=== PATIENT | female | born 1990 | race Caucasian/White ===

== ENCOUNTER 2018-03-13 15:56 | Emergency (ER) | payer BC ==
[2018-03-13] MEDS ORDERED: Ondansetron 4 MG/2 ML SDV IVPUSH ONE (17:05)
[2018-03-13] MEDS ORDERED: Sodium Chloride 0.9% 1,000 ML IV SCH (17:15)
--- NOTE | 2018-03-13 17:46 | EDM.PDOC ---
ED HPI GENERAL MEDICAL PROBLEM - General Chief Complaint: Skin Complaint Stated Complaint: CUT ON NECK/G.BLADDER Time Seen by Provider: 03/13/18 16:29 Source of Information: Reports: Patient, Family () History Limitations: Reports: No Limitations - History of Present Illness INITIAL COMMENTS - FREE TEXT/NARRATIVE: The patient states that she was scratched by her dog on the right side of her neck 3 days ago, 03/10/2018. Today she developed pruritic "bumps" on the right side of her neck and upper right chest. She developed dyspnea and wheezing. She used her albuterol neb, and felt better. She also developed a dull ache in the right upper quadrant of her abdomen, a pain made worse with deep breaths or touching the area. She had the same pain in 2016 and was diagnosed with gallstones. She states she was treated with medications, not surgery. The patient reports nausea for the past week. No recent fever, emesis, constiipation, diarrhea, or urinary symptoms. The patient's last oral intake was at 04:30 this morning. The patient does not have a PCP. Neck Pain Score (Numeric/FACES): 6 Right Abdomen Pain Score (Numeric/FACES): 7 - Related Data Allergies Allergy/AdvReac Type Severity Reaction Status Date / Time doxycycline Allergy Hives Verified 03/13/18 16:22 iodine Allergy Anaphylactic Verified 03/13/18 16:22 Shock latex Allergy Anaphylactic Verified 03/13/18 16:22 Shock shellfish derived Allergy Anaphylactic Verified 03/13/18 16:22 Shock strawberry Allergy Anaphylactic Verified 03/13/18 16:22 Shock Tricyclic Compounds Allergy Hives Verified 03/13/18 16:22 Home Meds: Home Meds Aspirin 81 mg PO DAILY 03/13/18 [History] Insulin Glarg,Human.Rec.Analog [Lantus] 10 unit SQ DAILY 03/13/18 [History] Past Medical History Respiratory History: Reports: Asthma (presumed, not confirmed) 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: Reports: Polycystic Ovaries, Psychiatric History: Reports: Anxiety, Depression Endocrine/Metabolic History: Reports: Diabetes, Type II, Obesity/BMI 30+ Hematologic History: Reports: Other (See Below) (Lupus anticoagulant, but no history of thrombosis or spontaneous ) Immunologic History: Reports: SLE (previously treated with MTx and plaquenil - not currently on any medications) - Infectious Disease History Infectious Disease History: Reports: Other (See Below) (Scabies) - Past Surgical History HEENT Surgical History: Reports: Oral Surgery ([place] teeth extraction), Tonsillectomy Musculoskeletal Surgical History: Reports: Other (See Below) (Right arthroscopic ACL repair) Social & Family History - Family History Family Medical History: Noncontributory - Tobacco Use Smoking Status *Q: Never Smoker Second Hand Smoke Exposure: No - Caffeine Use Caffeine Use: Reports: None - Alcohol Use Alcohol Use History: No - Recreational Drug Use Recreational Drug Use: No - Living Situation & Occupation Living situation: Reports: , with Spouse Occupation: Unemployed ED ROS GENERAL - Review of Systems Review Of Systems: ROS reveals no pertinent complaints other than HPI. ED EXAM, SKIN/RASH Exam: See Below Exam Limited By: No Limitations General Appearance: Alert, WD/WN, No Apparent Distress Eye Exam: Bilateral Eye: Normal Inspection Ears: Normal External Exam, Hearing Grossly Normal Nose: Normal Inspection, No Blood Throat/Mouth: Normal Inspection, Normal Lips, Normal Voice, No Airway Compromise Head: Atraumatic, Normocephalic Neck: Normal Inspection, Full Range of Motion Respiratory/Chest: No Respiratory Distress, Lungs Clear, Normal Breath Sounds, No Accessory Muscle Use Cardiovascular: Normal Peripheral Pulses, Regular Rate, Rhythm, No Gallop, No JVD, No Murmur, No Rub Peripheral Pulses: 4+: Radial (L), Radial (R) GI/Abdominal: Normal Bowel Sounds, Soft, No Organomegaly, No Distention, No Abnormal Bruit, No Mass, Tender (Right upper quadrant only. Nontender elsewhere. Moreira's sign negative.), Other (Obese) (Female) Exam: Deferred Rectal (Female) Exam: Deferred Back Exam: Normal Inspection, Full Range of Motion. No: CVA Tenderness (L), CVA Tenderness (R) Extremities: Normal Inspection, Normal Range of Motion, No Pedal Edema, Normal Capillary Refill Neurological: Alert, Oriented, Normal Cognition, No Motor/Sensory Deficits Psychiatric: Normal Affect Skin: Warm, Dry, Intact, Normal Color, Erythema (to lower right neck and upper right chest - excoriatios noted) Lymphatic: No Adenopathy Course - Vital Signs Last Recorded V/S: Last Vital Signs Temp 36.8 C 03/13/18 16:10 Pulse 99 03/13/18 16:10 Resp 18 03/13/18 16:10 BP 142/106 H 03/13/18 16:10 Pulse Ox 98 03/13/18 16:10 - Orders/Labs/Meds Orders: Active Orders 24 hr Category Date Time Status HCG QUALITATIVE,URINE [URCHEM] Stat Lab 03/13/18 17:20 Ordered UA W/MICROSCOPIC [URIN] Stat Lab 03/13/18 17:20 Ordered Sodium Chloride 0.9% [Normal Saline] 1,000 ml Med 03/13/18 17:15 Active IV ASDIRECTED Medication Orders Sodium Chloride (Normal Saline) 1,000 mls @ 100 mls/hr IV ASDIRECTED AMADEO Last Admin: 03/13/18 17:24 Dose: 100 mls/hr Labs: Laboratory Tests 03/13/18 03/13/18 03/13/18 Range/Units 17:20 17:20 17:20 WBC 7.49 (3.98-10.04) K/mm3 RBC 5.51 H (3.98-5.22) M/mm3 Hgb 14.2 (11.2-15.7) gm/L Hct 43.8 (34.1-44.9) % MCV 79.5 (79.4-94.8) fl MCH 25.8 (25.6-32.2) pg MCHC 32.4 (32.2-35.5) g/dl RDW Std Deviation 40.1 (36.4-46.3) fL Plt Count 301 (182-369) K/mm3 MPV 9.9 (9.4-12.3) fl Neutrophils % (Manual) 50 (40-60) % Band Neutrophils % 1 (0-10) % Lymphocytes % (Manual) 40 (20-40) % Atypical Lymphs % 0 % Monocytes % (Manual) 7 (2-10) % Eosinophils % (Manual) 2 (0.7-5.8) % Basophils % (Manual) 0 L (0.1-1.2) Platelet Estimate Adequate RBC Morph Comment Normal Sodium (136-145) mEq/L Potassium (3.5-5.1) mEq/L Chloride (98-107) mEq/L Carbon Dioxide (21-32) mEq/L Anion Gap (5-15) BUN (7-18) mg/dL Creatinine (0.55-1.02) mg/dL Est Cr Clr Drug Dosing mL/min Estimated GFR (MDRD) (>60) mL/min BUN/Creatinine Ratio (14-18) Glucose (74-106) mg/dL Calcium (8.5-10.1) mg/dL Total Bilirubin (0.2-1.0) mg/dL AST (15-37) U/L ALT (14-59) U/L Alkaline Phosphatase (46-116) U/L Total Protein (6.4-8.2) g/dl Albumin (3.4-5.0) g/dl Globulin gm/dL Albumin/Globulin Ratio (1-2) Lipase (73-393) U/L Urine Color Light yellow (Yellow) Urine Appearance Slt cloudy H (Clear) Urine pH 7.0 (5.0-8.0) Ur Specific [place] 1.025 (1.005-1.030) Urine Protein Trace H (Negative) Urine Glucose (UA) Negative (Negative) Urine Ketones Negative (Negative) Urine Occult Blood Negative (Negative) Urine Nitrite Negative (Negative) Urine Bilirubin Negative (Negative) Urine Urobilinogen 0.2 (0.2-1.0) Ur Leukocyte Esterase Negative (Negative) Urine RBC 0-5 (0-5) /hpf Urine WBC 0-5 (0-5) /hpf Ur Epithelial Cells 5-10 H (0-5) /hpf Urine Bacteria Few (FEW) /hpf Urine Mucus Moderate H (FEW) /hpf Urine HCG, Qual Negative (NEGATIVE) 03/13/18 Range/Units 17:20 WBC (3.98-10.04) K/mm3 RBC (3.98-5.22) M/mm3 Hgb (11.2-15.7) gm/L Hct (34.1-44.9) % MCV (79.4-94.8) fl MCH (25.6-32.2) pg MCHC (32.2-35.5) g/dl RDW Std Deviation (36.4-46.3) fL Plt Count (182-369) K/mm3 MPV (9.4-12.3) fl Neutrophils % (Manual) (40-60) % Band Neutrophils % (0-10) % Lymphocytes % (Manual) (20-40) % Atypical Lymphs % % Monocytes % (Manual) (2-10) % Eosinophils % (Manual) (0.7-5.8) % Basophils % (Manual) (0.1-1.2) Platelet Estimate RBC Morph Comment Sodium 142 (136-145) mEq/L Potassium 3.7 (3.5-5.1) mEq/L Chloride 104 (98-107) mEq/L Carbon Dioxide 26 (21-32) mEq/L Anion Gap 15.7 H (5-15) BUN 10 (7-18) mg/dL Creatinine 0.9 (0.55-1.02) mg/dL Est Cr Clr Drug Dosing 96.39 mL/min Estimated GFR (MDRD) > 60 (>60) mL/min BUN/Creatinine Ratio 11.1 L (14-18) Glucose 122 H (74-106) mg/dL Calcium 9.4 (8.5-10.1) mg/dL Total Bilirubin 0.2 (0.2-1.0) mg/dL AST 27 (15-37) U/L ALT 37 (14-59) U/L Alkaline Phosphatase 108 (46-116) U/L Total Protein 8.7 H (6.4-8.2) g/dl Albumin 3.9 (3.4-5.0) g/dl Globulin 4.8 gm/dL Albumin/Globulin Ratio 0.8 L (1-2) Lipase 146 (73-393) U/L Urine Color (Yellow) Urine Appearance (Clear) Urine pH (5.0-8.0) Ur Specific [place] (1.005-1.030) Urine Protein (Negative) Urine Glucose (UA) (Negative) Urine Ketones (Negative) Urine Occult Blood (Negative) Urine Nitrite (Negative) Urine Bilirubin (Negative) Urine Urobilinogen (0.2-1.0) Ur Leukocyte Esterase (Negative) Urine RBC (0-5) /hpf Urine WBC (0-5) /hpf Ur Epithelial Cells (0-5) /hpf Urine Bacteria (FEW) /hpf Urine Mucus (FEW) /hpf Urine HCG, Qual (NEGATIVE) Meds: Medications Generic Name Dose Route Start Last Admin Trade Name Freq PRN Reason Stop Dose Admin Sodium Chloride 1,000 mls @ 100 mls/hr 03/13/18 17:15 03/13/18 17:24 Normal Saline IV 100 mls/hr ASDIRECTED AMADEO Administration Discontinued Medications Generic Name Dose Route Start Last Admin Trade Name Gregorio PRN Reason Stop Dose Admin Ondansetron HCl 4 mg 03/13/18 17:05 03/13/18 17:25 Zofran IVPUSH 03/13/18 17:06 4 mg ONETIME ONE Administration - Re-Assessments/Exams Free Text/Narrative Re-Assessment/Exam: 03/13/18 18:59 Ultrasound of the right upper quadrant is read by Dr. Ramirez as: 1. No abnormality is appreciated on right upper quadrant abdominal ultrasound. 03/13/18 19:09 Test results discussed with the patient and her . Today's workup is entirely unremarkable, and does not explain the cause of the patient's symptoms. Because her blood work and ultrasound are completely normal, I do not suspect gallbladder disease. The patient stated that the rash on her neck is spreading up her face. While she may feel that, I do not see any extension of the rash compared to when I examined her earlier. While I cannot be certain of the cause of the rash, I am recommending a topical hydrocortisone cream for what appears to be contact dermatitis. I am not recommending systemic steroids, such as prednisone, as I do not see a systemic process. This is not urticaria, and it is not a SLE rash. The patient became hostile. She stated that she is here because the rash hurts, and she wants help. The stated that when she had this previously, it turned into a staph infection. I explained that the hydrocortisone should be effective in reducing the pain and inflammation of the rash, and if she stops scratching it, it should not become infected. I do not see an indication for antibiotics at this time. I recommended that she follow-up with a PCP that I could refer her to, however, she refused that referral. Departure - Departure Time of Disposition: 19:14 Disposition: Home, Self-Care 01 Condition: Good Clinical Impression: Contact dermatitis, Right upper quadrant abdominal pain of unknown etiology - Discharge Information Referrals: PCP,None [Primary Care Provider] - Forms: ED Department Discharge Additional Instructions: You were seen in the emergency room for a rash on your lower right neck and upper right chest, along with upper right abdominal pain. Workup in the ER included blood work, a urinalysis, a urine test, and an ultrasound of your upper right abdomen. Your entire workup was unremarkable, and does not explain the cause of your pain , however, given the entirely negative workup, gallbladder disease is highly unlikely. The cause of your skin rash is unclear, but is consistent with contact dermatitis. We recommend that you apply [id number] hydrocortisone cream twice daily. Do not put the cream on your face, and wash your hands after applying it to the rash. Referral to a primary care physician was offered, but declined. If any other problems, please do not hesitate to return to the ER. - My Orders Last 24 Hours: My Active Orders 03/13/18 17:15 Sodium Chloride 0.9% [Normal Saline] 1,000 ml IV ASDIRECTED 03/13/18 17:20 HCG QUALITATIVE,URINE [URCHEM] Stat UA W/MICROSCOPIC [URIN] Stat - Assessment/Plan Last 24 Hours: My Active Orders 03/13/18 17:15 Sodium Chloride 0.9% [Normal Saline] 1,000 ml IV ASDIRECTED 03/13/18 17:20 HCG QUALITATIVE,URINE [URCHEM] Stat UA W/MICROSCOPIC [URIN] Stat
--- NOTE | 2018-03-13 18:14 | US ---
Limited abdominal ultrasound: Multiple real-time images of the right upper abdomen were obtained. Comparison: No previous abdominal imaging. Liver shows no focal abnormality. Gallbladder contains no gallstones. No gallbladder wall thickening is seen. No biliary duct dilatation is identified. Right kidney shows no hydronephrosis or mass. Visualized portions of the pancreas are within normal limits. Inferior vena cava is patent. Portal vein shows normal hepatopedal flow. Impression: 1. No abnormality is appreciated on right upper quadrant abdominal ultrasound. Diagnostic code #2
[2018-03-13] MEDS ORDERED: diphenhydrAMINE 50 MG Cap PO ONE (20:05)
[2018-03-13] MEDS ORDERED: predniSONE 20 MG Tab PO ONE (20:05)
== END 2018-03-13 20:30 | disposition home or self-care (01) ==
LOC: JD.ED 15:56
DX: L25.9 Unspecified contact dermatitis, unspecified cause (principal); R10.11 Right upper quadrant pain; S10.91XA Abrasion of unspecified part of neck, initial encounter; S20.311A Abrasion of right front wall of thorax, initial encounter; W54.0XXA Bitten by dog, initial encounter; Z91.040 Latex allergy status; Z79.82 Long term (current) use of aspirin; Z79.899 Other long term (current) drug therapy; Z88.8 Allergy status to other drugs, medicaments and biological substances; Z91.018 Allergy to other foods
CPT/HCPCS: 36415; 76705; 80053; 81001; 81025; 83690; 85025; 96361; 96374; 99284; A9270; J2405; J7040; 99283

== ENCOUNTER 2018-04-08 13:30 | Emergency (ER) | payer BC ==
--- NOTE | 2018-04-08 14:16 | EDM.PDOC ---
ED HPI GENERAL MEDICAL PROBLEM - General Chief Complaint: Lower Extremity Injury/Pain Stated Complaint: RIGHT ANKLE INJURY Time Seen by Provider: 04/08/18 14:05 Source of Information: Reports: Patient History Limitations: Reports: No Limitations - History of Present Illness INITIAL COMMENTS - FREE TEXT/NARRATIVE: Patient is a 28-year-old female with history of epilepsy who presents ED complaining of pain to the lateral aspect of the right ankle. Patient states 4 days ago she had a grand mal seizure and hit her ankle on the wall when this occurred. States it did swell up but has since decreased. Their is no bruising noted. She does have some pain with weightbearing with majority of the pain associated to the lateral aspect of the ankle. She states she is limping with walking. She has a history of fracture to the affected ankle. She is traveling to [place] and is concerned she may have fractured it. She has history of lupus , DM 2, HTN, and Epilepsy. She is on no medications. She denies smoking history , alcohol use, and or recreation use. Right Ankle Pain Score (Numeric/FACES): 6 - Related Data Allergies Allergy/AdvReac Type Severity Reaction Status Date / Time doxycycline Allergy Hives Verified 04/08/18 13:46 iodine Allergy Anaphylactic Verified 04/08/18 13:46 Shock latex Allergy Anaphylactic Verified 04/08/18 13:46 Shock shellfish derived Allergy Anaphylactic Verified 04/08/18 13:46 Shock strawberry Allergy Anaphylactic Verified 04/08/18 13:46 Shock Tricyclic Compounds Allergy Hives Verified 04/08/18 13:46 Home Meds: Home Meds Aspirin 81 mg PO DAILY 03/13/18 [History] Insulin Glarg,Human.Rec.Analog [Lantus] 10 unit SQ DAILY 03/13/18 [History] Past Medical History Cardiovascular History: Reports: Angina, Other (See Below) Other Cardiovascular History: has frequent c/o chest pains. Respiratory History: Reports: Asthma (presumed, not confirmed) Other Gastrointestinal History: took Methotrexate for Lupus, took Chemotherapy for Lupus. 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 Musculoskeletal History: Reports: Back Pain, Chronic, Fracture, Other (See Below ) Other Musculoskeletal History: sciatica. States has musculoskeletal disorder. Neurological History: Reports: Migraines, Seizure, Other (See Below) Other Neuro History: epilepsy. Psychiatric History: Reports: Anxiety, Depression Endocrine/Metabolic History: Reports: Diabetes, Type II, Obesity/BMI 30+ Other Endocrine/Metabolic History: Insulin Resistance Hematologic History: Reports: Other (See Below) (Lupus anticoagulant, but no history of thrombosis or spontaneous ) Immunologic History: Reports: SLE (previously treated with MTx and plaquenil - not currently on any medications) Dermatologic History: Reports: Other (See Below) Other Dermatologic History: "Lupus lesions" - Infectious Disease History Infectious Disease History: Reports: Other (See Below) (Scabies) Other Infectious Disease History: scabies. - Past Surgical History HEENT Surgical History: Reports: Oral Surgery ([place] teeth extraction), Tonsillectomy Musculoskeletal Surgical History: Reports: Other (See Below) (Right arthroscopic ACL repair) Social & Family History - Family History Family Medical History: Noncontributory - Caffeine Use Caffeine Use: Reports: None - Living Situation & Occupation Living situation: Reports: , with Spouse Occupation: Unemployed Review of Systems - Review of Systems Review Of Systems: ROS reveals no pertinent complaints other than HPI. ED EXAM, GENERAL - Physical Exam Exam: See Below Exam Limited By: No Limitations General Appearance: Alert, WD/WN, No Apparent Distress Ears: Hearing Grossly Normal Nose: Normal Inspection Throat/Mouth: Normal Voice, No Airway Compromise Neck: Normal Inspection, Supple Respiratory/Chest: No Respiratory Distress, No Accessory Muscle Use Cardiovascular: Normal Peripheral Pulses, Regular Rate, Rhythm Peripheral Pulses: 3+: Posterior Tibial (R) Extremities: Normal Inspection, No Pedal Edema, Normal Capillary Refill, Other ( Pain noted to the right lateral ankle worsened with palpation and flexion/ext of the ankle. No swelling, bruising, and or bony abnormalities noted. No sensory deficits noted. She has no pain to the proximal fibula and or knee. ) Neurological: Alert, Oriented, CN II-XII Intact, Normal Cognition, No Motor/ Sensory Deficits. No: Normal Gait Course - Vital Signs Last Recorded V/S: Last Vital Signs Temp 98.5 F 04/08/18 13:44 Pulse 88 04/08/18 13:44 Resp 18 04/08/18 13:44 BP 136/85 04/08/18 13:44 Pulse Ox 100 04/08/18 13:44 - Re-Assessments/Exams Free Text/Narrative Re-Assessment/Exam: X-ray of the right ankle ordered along with crutches and walking boot for discharge. Suspect the ankle is not fractured. 04/08/18 14:51 X-ray of the right ankle did not reveal any acute bony abnormalities. Final interpretation. Will discharge patient home with instructions as documented. Upon exiting the E.D. patient was limping not using the crutches. was carrying the crutches. Departure - Departure Time of Disposition: 14:52 Disposition: Home, Self-Care 01 Condition: Good Clinical Impression: Right ankle sprain Qualifiers: Encounter type: initial encounter Involved ligament of ankle: unspecified ligament Qualified Code(s): S93.401A - Sprain of unspecified ligament of right ankle, initial encounter - Discharge Information Instructions: Crutch Use, Adult, [id number], Walking Boot, Adult Referrals: PCP,None [Primary Care Provider] - Forms: ED Department Discharge Additional Instructions: No obvious acute bony abnormalities noted on x-ray. Suspect cause is still an ankle sprain/contusion. Treatment will include walking boot, toe-touch only for balance, and crutches to ambulate. Elevate when able to reduce swelling and pain. Place ice to affected area 4 times a day, 27 duration, do not apply ice directly on the skin. Take Tylenol and ibuprofen in alternating fashion for pain. If unable to weight bear in 7 to 10 days please follow up with PCP for re- xray. May advance to weight bearing in 3-5 days. Advance as tolerated. Return to the ED for any new or worsening symptoms.
--- NOTE | 2018-04-10 10:21 | CR ---
Left ankle: Four views of the left ankle were obtained. Comparison: No previous ankle exam. Ankle mortise is symmetric. No fracture, dislocation or other bony abnormality is seen. Impression: 1. No bony abnormality is identified on left ankle exam. Diagnostic code #1
== END 2018-04-08 15:10 | disposition home or self-care (01) ==
LOC: JD.ED 13:30
DX: S93.401A Sprain of unspecified ligament of right ankle, initial encounter (principal); J45.909 Unspecified asthma, uncomplicated; F41.9 Anxiety disorder, unspecified; F32.9 Major depressive disorder, single episode, unspecified; E66.9 Obesity, unspecified; Z91.09 Other allergy status, other than to drugs and biological substances; Z91.040 Latex allergy status; Z91.013 Allergy to seafood; Z79.82 Long term (current) use of aspirin; Z79.4 Long term (current) use of insulin; Z68.41 Body mass index [BMI] 40.0-44.9, adult; W22.01XA Walked into wall, initial encounter
CPT/HCPCS: 73610-26-LT; 73610-LT; 99284

== ENCOUNTER 2018-12-25 19:33 | Emergency (ER) | payer SELFPAY ==
[2018-12-25] MEDS ORDERED: Sodium Chloride 0.9% 10 ML Syringe FLUSH PRN (20:10)
[2018-12-25] MEDS ORDERED: Metoclopramide 10 MG/2 ML SDV IVPUSH ONE (20:13)
[2018-12-25] MEDS ORDERED: diphenhydrAMINE 50 MG/ML SDV IVPUSH ONE (20:13)
[2018-12-25] MEDS ORDERED: Ketorolac 30 MG/ML SDV IVPUSH ONE (20:13)
[2018-12-25] MEDS ORDERED: Sodium Chloride 0.9% 1,000 ML IV SCH (20:15)
--- NOTE | 2018-12-25 20:50 | EDM.PDOC ---
ED HPI GENERAL MEDICAL PROBLEM - General Chief Complaint: Diabetic Complaint Stated Complaint: HIGH BLOOD SUGAR LOSING SIGHT IN EYE KETO Time Seen by Provider: 12/25/18 19:50 Source of Information: Reports: Patient History Limitations: Reports: No Limitations - History of Present Illness INITIAL COMMENTS - FREE TEXT/NARRATIVE: The patient presents with elevated blood sugars. She is type I diabetic and she is on lantus and novolog sliding scale. Over the past few days her blood sugars have been in the 300s and 400s. She may be . Her LNMP was December 02. She also may have a flair up of her lupus. She has more of a rash on her face and her arms. She also has a migraine. She will get migraines when she has elevated blood sugars. She has been drinking more and urinating more. She has some blurry vision in her left eye. She will get that too when her blood sugar is elevated. She has no fever, chills, cough, congestion, runny nose, chest pain, shortness of breath, abdominal pain, nausea or vomiting. She has been her a lot according to her. She was switched from levemer to lantus recently. Onset: Gradual Duration: Day(s): Location: Reports: Head Quality: Reports: Ache Severity: Moderate Improves with: Reports: None Worsens with: Reports: None Associated Symptoms: Reports: Headaches. Denies: Chest Pain, Cough, Fever/ Chills, Nausea/Vomiting, Shortness of Breath Right Abdomen Pain Score (Numeric/FACES): 1 - Related Data Allergies Allergy/AdvReac Type Severity Reaction Status Date / Time doxycycline Allergy Hives Verified 12/25/18 19:49 iodine Allergy Anaphylactic Verified 12/25/18 19:49 Shock latex Allergy Anaphylactic Verified 12/25/18 19:49 Shock shellfish derived Allergy Anaphylactic Verified 12/25/18 19:49 Shock strawberry Allergy Anaphylactic Verified 12/25/18 19:49 Shock Tricyclic Compounds Allergy Hives Verified 12/25/18 19:49 Home Meds: Home Meds Aspirin 81 mg PO DAILY 03/13/18 [History] Insulin Regular, Human [Humulin R] 300 unit IJ ASDIRECTED #5 pen 11/26/18 [Rx] Insulin Glarg,Human.Rec.Analog [Lantus] 16 units SUBCUT DAILY 12/25/18 [History] Sertraline [Zoloft] 100 mg PO DAILY 12/25/18 [History] Past Medical History Cardiovascular History: Reports: Angina, Other (See Below) Other Cardiovascular History: has frequent c/o chest pains. Respiratory History: Reports: Asthma Gastrointestinal History: Reports: Hiatal Hernia, Other (See Below) Other Gastrointestinal History: took Methotrexate for Lupus, took Chemotherapy for Lupus. Genitourinary History: Reports: Pyelonephritis, UTI, Recurrent Other Genitourinary History: states has pyelonephritis chronically. 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 Musculoskeletal History: Reports: Back Pain, Chronic, Fracture, Other (See Below ) Other Musculoskeletal History: sciatica. States has musculoskeletal disorder. He believes that she has lupus erythematosus. She is scheduled to see rheumatology in 2 months time. She was on methotrexate for over a year and on high-dose steroids which did improve her CRP and sedimentation rate. Neurological History: Reports: Migraines, Seizure, Other (See Below) Other Neuro History: epilepsy. Psychiatric History: Reports: Anxiety, Depression Endocrine/Metabolic History: Reports: Diabetes, Type II, Obesity/BMI 30+, Other (See Below) Other Endocrine/Metabolic History: Insulin Resistance Hematologic History: Reports: Other (See Below) Other Hematologic History: heavy blood loss due to CUEVAS and heavy periods, no blood transfusions Immunologic History: Reports: SLE Dermatologic History: Reports: Other (See Below) Other Dermatologic History: "Lupus lesions" - Infectious Disease History Infectious Disease History: Reports: Other (See Below) Other Infectious Disease History: scabies. - Past Surgical History HEENT Surgical History: Reports: Oral Surgery, Tonsillectomy Musculoskeletal Surgical History: Reports: Other (See Below) Social & Family History - Family History Family Medical History: Noncontributory - Tobacco Use Smoking Status *Q: Never Smoker Second Hand Smoke Exposure: No - Caffeine Use Caffeine Use: Reports: None - Recreational Drug Use Recreational Drug Use: Yes Drug Use in Last 12 Months: Yes Recreational Drug Type: Reports: Marijuana/Hashish - Living Situation & Occupation Living situation: Reports: , with Spouse Occupation: Unemployed ED ROS GENERAL - Review of Systems Review Of Systems: See Below Constitutional: Reports: No Symptoms HEENT: Reports: No Symptoms Respiratory: Reports: No Symptoms Cardiovascular: Reports: No Symptoms Endocrine: Reports: No Symptoms GI/Abdominal: Reports: No Symptoms : Reports: No Symptoms Musculoskeletal: Reports: No Symptoms Neurological: Reports: Headache ED EXAM GENERAL NO PERIP PULSE - Physical Exam Exam: See Below Exam Limited By: No Limitations General Appearance: Alert, No Apparent Distress Ears: Normal External Exam Nose: Normal Inspection Head: Atraumatic, Normocephalic Neck: Normal Inspection Respiratory/Chest: No Respiratory Distress, Lungs Clear, Normal Breath Sounds Cardiovascular: Regular Rate, Rhythm, No Edema, No Murmur GI/Abdominal: Soft, Non-Tender, No Organomegaly, No Mass Back Exam: Normal Inspection Extremities: Normal Inspection Neurological: Alert, Oriented, No Motor/Sensory Deficits Course - Vital Signs Last Recorded V/S: Last Vital Signs Temp 98.6 F 12/25/18 19:46 Pulse Resp BP Pulse Ox - Orders/Labs/Meds Orders: Active Orders 24 hr Category Date Time Status Cardiac Monitoring [RC] . DIRECTED Care 12/25/18 20:10 Active Peripheral IV Care [RC] . DIRECTED Care 12/25/18 20:10 Active ABG [BLOOD GAS ARTERIAL] [BG] Stat Lab 12/25/18 21:57 Received Sodium Chloride 0.9% [Normal Saline] 1,000 ml Med 12/25/18 20:15 Active IV .BOLUS Sodium Chloride 0.9% [Saline Flush] Med 12/25/18 20:10 Active 10 ml FLUSH ASDIRECTED PRN Peripheral IV Insertion Adult [OM.PC] Stat Oth 12/25/18 20:10 Ordered Medication Orders Sodium Chloride (Normal Saline) 1,000 mls @ 1,000 mls/hr IV .BOLUS AMADEO Last Admin: 12/25/18 20:45 Dose: 1,000 mls/hr Sodium Chloride (Saline Flush) 10 ml FLUSH ASDIRECTED PRN PRN Reason: Keep Vein Open Last Admin: 12/25/18 20:46 Dose: 10 ml Labs: Laboratory Tests 12/25/18 12/25/18 12/25/18 Range/Units 20:45 20:45 20:45 WBC 9.96 (3.98-10.04) K/mm3 RBC 5.25 H (3.98-5.22) M/mm3 Hgb 13.7 (11.2-15.7) gm/L Hct 41.7 (34.1-44.9) % MCV 79.4 (79.4-94.8) fl MCH 26.1 (25.6-32.2) pg MCHC 32.9 (32.2-35.5) g/dl RDW Std Deviation 40.9 (36.4-46.3) fL Plt Count 295 (182-369) K/mm3 MPV 10.6 (9.4-12.3) fl Neut % (Auto) 46.1 (34.0-71.1) % Lymph % (Auto) 45.1 (19.3-51.7) % [place] % (Auto) 6.1 (4.7-12.5) % Eos % (Auto) 1.8 (0.7-5.8) Baso % (Auto) 0.3 (0.1-1.2) % Neut # (Auto) 4.59 (1.56-6.13) K/mm3 Lymph # (Auto) 4.49 H (1.18-3.74) K/mm3 [place] # (Auto) 0.61 H (0.24-0.36) K/mm3 Eos # (Auto) 0.18 (0.04-0.36) K/mm3 Baso # (Auto) 0.03 (0.01-0.08) K/mm3 ESR 29 H (0-20) mm/hr Sodium (136-145) mEq/L Potassium (3.5-5.1) mEq/L Chloride (98-107) mEq/L Carbon Dioxide (21-32) mEq/L Anion Gap (5-15) BUN (7-18) mg/dL Creatinine (0.55-1.02) mg/dL Est Cr Clr Drug Dosing mL/min Estimated GFR (MDRD) (>60) mL/min BUN/Creatinine Ratio (14-18) Glucose (74-106) mg/dL Serum Osmolality (280-300) mosm/kg Calcium (8.5-10.1) mg/dL Total Bilirubin (0.2-1.0) mg/dL AST (15-37) U/L ALT (14-59) U/L Alkaline Phosphatase (46-116) U/L C-Reactive Protein (<1.0) mg/dL Total Protein (6.4-8.2) g/dl Albumin (3.4-5.0) g/dl Globulin gm/dL Albumin/Globulin Ratio (1-2) Lipase (73-393) U/L HCG, Qual (NEGATIVE) Urine Color Yellow (Yellow) Urine Appearance Clear (Clear) Urine pH 6.0 (5.0-8.0) Ur Specific [place] 1.020 (1.005-1.030) Urine Protein Negative (Negative) Urine Glucose (UA) 2+ H (Negative) Urine Ketones Trace H (Negative) Urine Occult Blood Negative (Negative) Urine Nitrite Negative (Negative) Urine Bilirubin Negative (Negative) Urine Urobilinogen 0.2 (0.2-1.0) Ur Leukocyte Esterase Negative (Negative) Urine RBC 0-5 (0-5) /hpf Urine WBC 0-5 (0-5) /hpf Ur Epithelial Cells 5-10 H (0-5) /hpf Urine Bacteria Few (FEW) /hpf Urine Mucus Few (FEW) /hpf Ketones (0.0-0.3) mM 12/25/18 12/25/18 12/25/18 Range/Units 20:45 20:45 20:45 WBC (3.98-10.04) K/mm3 RBC (3.98-5.22) M/mm3 Hgb (11.2-15.7) gm/L Hct (34.1-44.9) % MCV (79.4-94.8) fl MCH (25.6-32.2) pg MCHC (32.2-35.5) g/dl RDW Std Deviation (36.4-46.3) fL Plt Count (182-369) K/mm3 MPV (9.4-12.3) fl Neut % (Auto) (34.0-71.1) % Lymph % (Auto) (19.3-51.7) % [place] % (Auto) (4.7-12.5) % Eos % (Auto) (0.7-5.8) Baso % (Auto) (0.1-1.2) % Neut # (Auto) (1.56-6.13) K/mm3 Lymph # (Auto) (1.18-3.74) K/mm3 [place] # (Auto) (0.24-0.36) K/mm3 Eos # (Auto) (0.04-0.36) K/mm3 Baso # (Auto) (0.01-0.08) K/mm3 ESR (0-20) mm/hr Sodium 136 (136-145) mEq/L Potassium 3.9 (3.5-5.1) mEq/L Chloride 100 (98-107) mEq/L Carbon Dioxide 26 (21-32) mEq/L Anion Gap 13.9 (5-15) BUN 12 (7-18) mg/dL Creatinine 0.8 (0.55-1.02) mg/dL Est Cr Clr Drug Dosing 107.50 mL/min Estimated GFR (MDRD) > 60 (>60) mL/min BUN/Creatinine Ratio 15.0 (14-18) Glucose 293 H (74-106) mg/dL Serum Osmolality 303 H (280-300) mosm/kg Calcium 9.4 (8.5-10.1) mg/dL Total Bilirubin 0.1 L (0.2-1.0) mg/dL AST 24 (15-37) U/L ALT 32 (14-59) U/L Alkaline Phosphatase 110 (46-116) U/L C-Reactive Protein 3.2 H* (<1.0) mg/dL Total Protein 8.5 H (6.4-8.2) g/dl Albumin 3.7 (3.4-5.0) g/dl Globulin 4.8 gm/dL Albumin/Globulin Ratio 0.8 L (1-2) Lipase 197 (73-393) U/L HCG, Qual Negative (NEGATIVE) Urine Color (Yellow) Urine Appearance (Clear) Urine pH (5.0-8.0) Ur Specific [place] (1.005-1.030) Urine Protein (Negative) Urine Glucose (UA) (Negative) Urine Ketones (Negative) Urine Occult Blood (Negative) Urine Nitrite (Negative) Urine Bilirubin (Negative) Urine Urobilinogen (0.2-1.0) Ur Leukocyte Esterase (Negative) Urine RBC (0-5) /hpf Urine WBC (0-5) /hpf Ur Epithelial Cells (0-5) /hpf Urine Bacteria (FEW) /hpf Urine Mucus (FEW) /hpf Ketones 0.20 (0.0-0.3) mM Meds: Medications Generic Name Dose Route Start Last Admin Trade Name Freq PRN Reason Stop Dose Admin Sodium Chloride 1,000 mls @ 1,000 mls/hr 12/25/18 20:15 12/25/18 20:45 Normal Saline IV 1,000 mls/hr .BOLUS AMADEO Administration Sodium Chloride 10 ml 12/25/18 20:10 12/25/18 20:46 Saline Flush FLUSH 10 ml ASDIRECTED PRN Administration Keep Vein Open Discontinued Medications Generic Name Dose Route Start Last Admin Trade Name Freq PRN Reason Stop Dose Admin Diphenhydramine HCl 50 mg 12/25/18 20:13 12/25/18 20:45 Benadryl IVPUSH 12/25/18 20:14 50 mg ONETIME ONE Administration Ketorolac Tromethamine 30 mg 12/25/18 20:13 12/25/18 20:45 Toradol IVPUSH 12/25/18 20:14 30 mg ONETIME ONE Administration Metoclopramide HCl 10 mg 12/25/18 20:13 12/25/18 20:46 Reglan IVPUSH 12/25/18 20:14 10 mg ONETIME ONE Administration Prednisone 40 mg 12/25/18 22:45 Prednisone PO 12/25/18 22:46 ONETIME ONE - Re-Assessments/Exams Free Text/Narrative Re-Assessment/Exam: 12/25/18 20:52 I ordered an IV NS 1L bolus, reglan 10mg IV, benadryl 50mg IV, toradol 30mg IV, and labs. 12/25/18 22:47 Her CBC looks good. Her glucose was 293. Her serum osmolality was elevated at 303. Her CRP was elevated at 3.2. Her HCG is negative. Her lipase was normal. Her UA shows no UTI. Her ketones were 0.2. Her pH was 7.39. She does not have DKA but I should increase her lantus to 30 units. She is having a flair up of her lupus. I will put her on some steroids. She does have steroids at home. Departure - Departure Time of Disposition: 22:50 Disposition: Home, Self-Care 01 Condition: Good Clinical Impression: Hyperglycemia, Lupus Migraine Qualifiers: Migraine type: unspecified Status migrainosus presence: without status migrainosus Intractability: not intractable Qualified Code(s): G43.909 - Migraine, unspecified, not intractable, without status migrainosus - Discharge Information *PRESCRIPTION DRUG MONITORING PROGRAM REVIEWED*: No Referrals: Britt Cortes NP [Primary Care Provider] - 1 Week Forms: ED Department Discharge Additional Instructions: Go up with your lantus to 30 units per day. Take prednisone daily for 5 days. Keep checking your blood sugar. Please return if you are worse. - My Orders Last 24 Hours: My Active Orders 12/25/18 20:10 Cardiac Monitoring [RC] . DIRECTED Peripheral IV Care [RC] . DIRECTED Sodium Chloride 0.9% [Saline Flush] 10 ml FLUSH ASDIRECTED PRN Peripheral IV Insertion Adult [OM.PC] Stat 12/25/18 20:15 Sodium Chloride 0.9% [Normal Saline] 1,000 ml IV .BOLUS 12/25/18 21:57 ABG [BLOOD GAS ARTERIAL] [BG] Stat - Assessment/Plan Last 24 Hours: My Active Orders 12/25/18 20:10 Cardiac Monitoring [RC] . DIRECTED Peripheral IV Care [RC] . DIRECTED Sodium Chloride 0.9% [Saline Flush] 10 ml FLUSH ASDIRECTED PRN Peripheral IV Insertion Adult [OM.PC] Stat 12/25/18 20:15 Sodium Chloride 0.9% [Normal Saline] 1,000 ml IV .BOLUS 12/25/18 21:57 ABG [BLOOD GAS ARTERIAL] [BG] Stat
[2018-12-25] MEDS ORDERED: predniSONE 20 MG Tab PO ONE (22:45)
== END 2018-12-25 23:05 | disposition home or self-care (01) ==
LOC: JD.ED 19:33
DX: E11.65 Type 2 diabetes mellitus with hyperglycemia (principal); M32.9 Systemic lupus erythematosus, unspecified; G43.909 Migraine, unspecified, not intractable, without status migrainosus; F41.9 Anxiety disorder, unspecified; F32.9 Major depressive disorder, single episode, unspecified; Z88.1 Allergy status to other antibiotic agents; Z88.8 Allergy status to other drugs, medicaments and biological substances; Z91.040 Latex allergy status; Z91.013 Allergy to seafood; Z91.018 Allergy to other foods; Z88.6 Allergy status to analgesic agent; Z79.4 Long term (current) use of insulin
CPT/HCPCS: 36415; 80053; 81001; 82009; 82803; 83690; 83930; 84703; 85025; 85652; 86140; 96361; 96374; 96375; 99285; J1200; J1885; J2765; J7040; 99284

== ENCOUNTER 2019-02-18 21:19 | Emergency (ER) | payer MEDICAID ==
[2019-02-18] MEDS ORDERED: Dextrose 5%-0.9% NaCl 1,000 ML IV SCH (21:45)
[2019-02-18] MEDS ORDERED: Ondansetron 4 MG/2 ML SDV IVPUSH ONE (21:55)
[2019-02-18] MEDS: 50% Dextrose in Water 50 ML Syringe IVPUSH PRN ×2 (22:47→23:23)
--- NOTE | 2019-02-18 23:15 | EDM.PDOC ---
<Cathy Butterfield - Last Filed: 02/18/19 23:28> ED HPI GENERAL MEDICAL PROBLEM - General Chief Complaint: Diabetic Complaint Stated Complaint: OVERDOSE OF INSULIN Time Seen by Provider: 02/18/19 21:26 Source of Information: Reports: Patient History Limitations: Reports: No Limitations - History of Present Illness INITIAL COMMENTS - FREE TEXT/NARRATIVE: 28 yo F comes in with her because she accidently overdosed on her insulin around 20 minutes prior to arrival in ED. She accidently took 30 units of her Novolog instead of 4 units with her meal (she confused it with her 30 units of Lantus). She states "I have never done this before, I don't know what happened". BG 135 was after eating. She called poison control and they told her to come to the ED. She currently c/o nausea, dizziness, fatigue, thirst. No other complaints at this time. PCP is ASHLEY Greene. - Related Data Allergies Allergy/AdvReac Type Severity Reaction Status Date / Time doxycycline Allergy Hives Verified 12/25/18 19:49 iodine Allergy Anaphylactic Verified 12/25/18 19:49 Shock latex Allergy Anaphylactic Verified 12/25/18 19:49 Shock shellfish derived Allergy Anaphylactic Verified 12/25/18 19:49 Shock strawberry Allergy Anaphylactic Verified 12/25/18 19:49 Shock Tricyclic Compounds Allergy Hives Verified 12/25/18 19:49 Home Meds: Home Meds Aspirin 81 mg PO DAILY 03/13/18 [History] Insulin Regular, Human [Humulin R] 300 unit IJ ASDIRECTED #5 pen 11/26/18 [Rx] Insulin Glarg,Human.Rec.Analog [Lantus] 16 units SUBCUT DAILY 12/25/18 [History] Sertraline [Zoloft] 100 mg PO DAILY 12/25/18 [History] Ondansetron [Zofran ODT] 1 tab PO Q8H PRN #10 tab.dis 02/19/19 [Rx] Past Medical History Cardiovascular History: Reports: Angina, Other (See Below) Other Cardiovascular History: has frequent c/o chest pains. Respiratory History: Reports: Asthma Gastrointestinal History: Reports: Hiatal Hernia, Other (See Below) Other Gastrointestinal History: took Methotrexate for Lupus, took Chemotherapy for Lupus. Genitourinary History: Reports: Pyelonephritis, UTI, Recurrent Other Genitourinary History: states has pyelonephritis chronically. 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 Musculoskeletal History: Reports: Back Pain, Chronic, Fracture, Other (See Below ) Other Musculoskeletal History: sciatica. States has musculoskeletal disorder. He believes that she has lupus erythematosus. She is scheduled to see rheumatology in 2 months time. She was on methotrexate for over a year and on high-dose steroids which did improve her CRP and sedimentation rate. Neurological History: Reports: Migraines, Seizure, Other (See Below) Other Neuro History: epilepsy. Psychiatric History: Reports: Anxiety, Depression Endocrine/Metabolic History: Reports: Diabetes, Type II, Obesity/BMI 30+, Other (See Below) Other Endocrine/Metabolic History: Insulin Resistance Hematologic History: Reports: Other (See Below) Other Hematologic History: Heavy blood loss due to CUEVAS and heavy periods, no blood transfusions. "CUEVAS" disease--sticky blood disease. Immunologic History: Reports: SLE Dermatologic History: Reports: Other (See Below) Other Dermatologic History: "Lupus lesions" - Infectious Disease History Infectious Disease History: Reports: Other (See Below) Other Infectious Disease History: scabies. - Past Surgical History HEENT Surgical History: Reports: Oral Surgery, Tonsillectomy GI Surgical History: Reports: Hernia Repair/Other Musculoskeletal Surgical History: Reports: Other (See Below) Social & Family History - Family History Family Medical History: Noncontributory - Tobacco Use Smoking Status *Q: Former Smoker Used Tobacco, but Quit: Yes Month/Year Tobacco Last Used: 12/2012 Second Hand Smoke Exposure: No - Caffeine Use Caffeine Use: Reports: None - Recreational Drug Use Recreational Drug Use: Yes Recreational Drug Type: Reports: Marijuana/Hashish Other Recreational Drug Type: last use was Saturday - Living Situation & Occupation Living situation: Reports: , with Spouse Occupation: Unemployed ED ROS GENERAL - Review of Systems Review Of Systems: ROS reveals no pertinent complaints other than HPI. ED EXAM GENERAL NO PERIP PULSE - Physical Exam Exam: See Below Exam Limited By: No Limitations General Appearance: Alert, WD/WN, No Apparent Distress Eye Exam: Bilateral Eye: EOMI, Normal Inspection, PERRL Ears: Normal External Exam, Hearing Grossly Normal Throat/Mouth: Normal Inspection, Normal Lips, Normal Teeth, Normal Gums, Normal Oropharynx, Normal Voice, No Airway Compromise Neck: Normal Inspection, Supple, Non-Tender, Full Range of Motion Respiratory/Chest: No Respiratory Distress, Lungs Clear, Normal Breath Sounds, No Accessory Muscle Use, Chest Non-Tender Cardiovascular: Normal Peripheral Pulses, Regular Rate, Rhythm, No Edema, No Gallop, No JVD, No Murmur, No Rub GI/Abdominal: Normal Bowel Sounds, Soft, Non-Tender, No Organomegaly, No Distention, No Abnormal Bruit, No Mass Psychiatric: Normal Affect, Normal Mood Course - Vital Signs Last Recorded V/S: Last Vital Signs Temp 36.2 C 02/18/19 21:26 Pulse 106 H 02/18/19 21:26 Resp 20 02/18/19 21:26 BP 144/94 H 02/18/19 21: Pulse Ox 98 02/18/19 21:26 - Orders/Labs/Meds Orders: Active Orders 24 hr Category Date Time Status Blood Glucose Check, Bedside [RC] ONETIME Care 02/18/19 21:32 Active Dextrose 5%-0.9% NaCl [Dextrose 5%-Normal Saline] 1,000 Med 02/18/19 21:45 Active ml IV ASDIRECTED Dextrose 50% in Water Med 02/18/19 21:32 Active 50 ml IVPUSH ASDIRECTED PRN Medication Orders Dextrose/Water (Dextrose 50% In Water) 50 ml IVPUSH ASDIRECTED PRN PRN Reason: Hypoglycemia Last Admin: 02/18/19 23:23 Dose: 25 ml Admin: 02/18/19 22:47 Dose: 25 ml Dextrose/Sodium Chloride (Dextrose 5%-Normal Saline) 1,000 mls @ 999 mls/hr IV ASDIRECTED AMADEO Last Admin: 02/18/19 21:45 Dose: 999 mls/hr Labs: Laboratory Tests 02/18/19 02/18/19 02/18/19 Range/Units 21:33 22:40 23:16 POC Glucose 154 H 80 86 (70-105) mg/dL 02/18/19 Range/Units 23:49 POC Glucose 91 (70-105) mg/dL Meds: Medications Generic Name Dose Route Start Last Admin Trade Name Freq PRN Reason Stop Dose Admin Dextrose/Water 50 ml 02/18/19 21:32 03/20/19 23:23 Dextrose 50% In Water IVPUSH 25 ml ASDIRECTED PRN Administration Hypoglycemia Dextrose/Sodium Chloride 1,000 mls @ 999 mls/hr 02/18/19 21:45 02/18/19 21:45 Dextrose 5%-Normal Saline IV 999 mls/hr ASDIRECTED AMADEO Administration Discontinued Medications Generic Name Dose Route Start Last Admin Trade Name Gregorio PRN Reason Stop Dose Admin Ondansetron HCl 4 mg 02/18/19 21:55 02/18/19 22:19 Zofran IVPUSH 02/18/19 21:56 4 mg ONETIME ONE Administration - Re-Assessments/Exams Free Text/Narrative Re-Assessment/Exam: 02/18/19 21:32 I ordered amp of D5 and IV D5NS. Zofran for nausea. BG checks every 30 min. 02/18/19 21:32 Bedside Glucose check is 154; will hold D5 amp. 02/18/19 22:20 Poison control called to check on patient. Recommended holding the IV D5NS and doing oral replacement. Will go ahead and hold and give orange juice and milk with BG checks every 30 min. Novolog should peak in about 1-3 hours, so we will continue to monitor her until her blood sugar stabilizes. 02/18/19 22:40 BG check is 80. Give 1/2 D5 amp. 02/18/19 23:16 BG check is now 86. Give other 1/2 D5 amp. It is now change of shift. Will be transferring care to Dr. Titus at this time. Departure - Departure Disposition: Home, Self-Care 01 Clinical Impression: Insulin overdose - Discharge Information Referrals: Britt Cortes NP [Primary Care Provider] - Forms: ED Department Discharge Additional Instructions: You were seen in the emergency room after taking excessive insulin. Your blood sugar was monitored and you were given supplemental sugar. Your most recent blood sugar was 91. We recommend that you continue to monitor your blood sugar for the next 2 or 3 hours, and take glucose tablets or other glucose sources if it drops low. If you are unable to raise your blood sugar, call 911 to return to the ER. A prescription for the anti-nausea medicine Zofran has been sent to the [facility], located in the [facility] grocery store. Dissolve one tablet of Zofran on your tongue up to every 8 hours, as needed for nausea/vomiting. We recommend that you notify your PCP, Britt Cortes, of tonight's event. If any other problems, please do not hesitate to return to the ER. <Macho Titus - Last Filed: 02/19/19 00:04> Course - Re-Assessments/Exams Free Text/Narrative Re-Assessment/Exam: 02/18/19 23:59 Notified by Yary TOBIAS that the patient's blood glucose is 91, that she feels great, and would like to go home. The patient is also requesting a prescription for Zofran. Departure - Departure Time of Disposition: 23:59 Condition: Good - Discharge Information *PRESCRIPTION DRUG MONITORING PROGRAM REVIEWED*: Not Applicable *COPY OF PRESCRIPTION DRUG MONITORING REPORT IN PATIENT JANY: Not Applicable
== END 2019-02-19 00:13 | disposition home or self-care (01) ==
LOC: JD.ED 21:19
DX: T38.3X1A Poisoning by insulin and oral hypoglycemic [antidiabetic] drugs, accidental (unintentional), initial encounter (principal); R11.10 Vomiting, unspecified; R42 Dizziness and giddiness; R53.83 Other fatigue; J45.909 Unspecified asthma, uncomplicated; F41.9 Anxiety disorder, unspecified; E11.9 Type 2 diabetes mellitus without complications; F32.9 Major depressive disorder, single episode, unspecified; Z87.891 Personal history of nicotine dependence; Z88.8 Allergy status to other drugs, medicaments and biological substances; Z91.013 Allergy to seafood; Z79.82 Long term (current) use of aspirin; Z79.4 Long term (current) use of insulin
CPT/HCPCS: 82962; 96374; 96375; 96376; 99283; J2405; J7042; J7060; 99284

== ENCOUNTER 2019-07-28 11:02 | Emergency (ER) | payer MEDICAID ==
[2019-07-28] MEDS ORDERED: Ondansetron 4 MG Tab.DIS PO ONE (11:31)
[2019-07-28] MEDS ORDERED: predniSONE 20 MG Tab PO ONE (11:34)
[2019-07-28] MEDS ORDERED: Acetaminophen/HYDROcodone 325-5 MG Tab PO ONE (11:35)
--- NOTE | 2019-07-28 11:36 | EDM.PDOC ---
ED HPI GENERAL MEDICAL PROBLEM - General Chief Complaint: Back Pain or Injury Stated Complaint: BACK PAIN Time Seen by Provider: 07/28/19 11:10 Source of Information: Reports: Patient, RN Notes Reviewed History Limitations: Reports: No Limitations - History of Present Illness INITIAL COMMENTS - FREE TEXT/NARRATIVE: Patient is a 29-year-old female who presents to the ED for evaluation of back pain. The patient notes that she's had some back pain for about 3 days now, however yesterday she did a lot of heavy moving and lifting in her home which aggravated it even further. Patient states that she has a sharp shooting pain in her right lower back that shoots down her right leg when she moves. Patient has been using Tylenol, ibuprofen, CBD, and fainting however she does not feel that his been working at all. She states she does feel muscle spasms in her lower back as well. She notes a prior history of a back injury, and she had 2 shots in her back and has done PT and chiropractor treatment in the past. Patient states she's been using pain relief cream and lidocaine patches but nothing seems to really be providing her benefit. Of note the patient thinks that she might be as they have been doing IVF therapy Right Lower Back Pain Score (Numeric/FACES): 6 - Related Data Allergies Allergy/AdvReac Type Severity Reaction Status Date / Time doxycycline Allergy Hives Verified 07/28/19 11:29 iodine Allergy Anaphylactic Verified 07/28/19 11:29 Shock latex Allergy Anaphylactic Verified 07/28/19 11:29 Shock shellfish derived Allergy Anaphylactic Verified 07/28/19 11:29 Shock strawberry Allergy Anaphylactic Verified 07/28/19 11:29 Shock Tricyclic Compounds Allergy Hives Verified 07/28/19 11:29 Home Meds: Home Meds Aspirin 81 mg PO DAILY 03/13/18 [History] Insulin Regular, Human [Humulin R] 300 unit IJ ASDIRECTED #5 pen 11/26/18 [Rx] Insulin Glarg,Human.Rec.Analog [Lantus] 16 units SUBCUT DAILY 12/25/18 [History] Sertraline [Zoloft] 100 mg PO DAILY 12/25/18 [History] Ondansetron [Zofran ODT] 1 tab PO Q8H PRN #10 tab.dis 02/19/19 [Rx] Past Medical History Cardiovascular History: Reports: Angina, Other (See Below) Other Cardiovascular History: has frequent c/o chest pains. Respiratory History: Reports: Asthma Gastrointestinal History: Reports: Hiatal Hernia, Other (See Below) Other Gastrointestinal History: took Methotrexate for Lupus, took Chemotherapy for Lupus. Genitourinary History: Reports: Pyelonephritis, UTI, Recurrent Other Genitourinary History: states has pyelonephritis chronically. CERTIFIED NURSE PRACTITIONER History: Reports: Polycystic Ovaries, Other CERTIFIED NURSE PRACTITIONER History: "CUEVAS" disease--sticky blood disease. Musculoskeletal History: Reports: Back Pain, Chronic, Fracture, Other (See Below ) Other Musculoskeletal History: sciatica. States has musculoskeletal disorder. He believes that she has lupus erythematosus. She is scheduled to see rheumatology in 2 months time. She was on methotrexate for over a year and on high-dose steroids which did improve her CRP and sedimentation rate. Neurological History: Reports: Migraines, Seizure, Other (See Below) Other Neuro History: epilepsy. Psychiatric History: Reports: Anxiety, Depression Endocrine/Metabolic History: Reports: Diabetes, Type II, Obesity/BMI 30+, Other (See Below) Other Endocrine/Metabolic History: Insulin Resistance Hematologic History: Reports: Other (See Below) Other Hematologic History: Heavy blood loss due to CUEVAS and heavy periods, no blood transfusions. "CUEVAS" disease--sticky blood disease. Immunologic History: Reports: SLE Dermatologic History: Reports: Other (See Below) Other Dermatologic History: "Lupus lesions" - Infectious Disease History Infectious Disease History: Reports: Other (See Below) Other Infectious Disease History: scabies. - Past Surgical History HEENT Surgical History: Reports: Oral Surgery, Tonsillectomy GI Surgical History: Reports: Hernia Repair/Other Musculoskeletal Surgical History: Reports: Other (See Below) Social & Family History - Family History Family Medical History: Noncontributory - Tobacco Use Smoking Status *Q: Never Smoker - Caffeine Use Caffeine Use: Reports: None - Recreational Drug Use Recreational Drug Use: No - Living Situation & Occupation Living situation: Reports: , with Spouse Occupation: Unemployed ED ROS GENERAL - Review of Systems Review Of Systems: See Below Constitutional: Reports: No Symptoms HEENT: Reports: No Symptoms Respiratory: Reports: No Symptoms Cardiovascular: Reports: No Symptoms Endocrine: Reports: No Symptoms GI/Abdominal: Reports: Nausea. Denies: Abdominal Pain, Constipation, Diarrhea, Vomiting : Denies: Dysuria, Flank Pain, Frequency, Urgency Musculoskeletal: Reports: No Symptoms Skin: Reports: No Symptoms Neurological: Reports: No Symptoms Psychiatric: Reports: No Symptoms Hematologic/Lymphatic: Reports: No Symptoms Immunologic: Reports: No Symptoms ED EXAM,LOWER BACK PAIN/INJURY - Physical Exam Exam: See Below Exam Limited By: No Limitations General Appearance: Alert, WD/WN, No Apparent Distress Eye Exam: Bilateral Eye: EOMI, Normal Inspection, PERRL Throat/Mouth: Normal Inspection, Normal Lips, Normal Teeth, Normal Gums, Normal Oropharynx, Normal Voice, No Airway Compromise Head: Atraumatic, Normocephalic Neck: Normal Inspection Respiratory/Chest: No Respiratory Distress, Lungs Clear, Normal Breath Sounds, No Accessory Muscle Use, Chest Non-Tender Cardiovascular: Normal Peripheral Pulses, Regular Rate, Rhythm, No Murmur GI/Abdominal: Normal Bowel Sounds, Soft, Non-Tender, No Distention, No Mass Neurological: Alert, Normal Mood/Affect, Normal Dorsiflexion, Normal Plantar Flexion, No Motor/Sensory Deficits, Oriented x 3, Straight Leg Raise (R), Difficulty Walking (pt has to hunch over to walk). No: Saddle Anesthesia Psychiatric: Normal Affect, Normal Mood Skin Exam: Warm, Dry, Intact, Normal Color, No Rash Course - Vital Signs Last Recorded V/S: Last Vital Signs Temp Pulse 104 H 07/28/19 11:09 Resp 20 07/28/19 11:09 BP 132/90 07/28/19 11:09 Pulse Ox 96 07/28/19 11:09 - Orders/Labs/Meds Meds: Medications Discontinued Medications Generic Name Dose Route Start Last Admin Trade Name Gregorio PRN Reason Stop Dose Admin Hydrocodone Bitart/Acetaminophen 2 tab 07/28/19 11:35 07/28/19 11:44 [place] 325-5 Mg PO 07/28/19 11:36 2 tab ONETIME ONE Administration Ondansetron HCl 4 mg 07/28/19 11:31 07/28/19 11:44 Zofran Odt PO 07/28/19 11:32 4 mg ONETIME ONE Administration Prednisone 20 mg 07/28/19 11:34 07/28/19 11:44 Prednisone PO 07/28/19 11:35 20 mg ONETIME ONE Administration - Re-Assessments/Exams Free Text/Narrative Re-Assessment/Exam: 07/28/19 11:39 Patient presents to the ED for evaluation of lower back pain that radiates to her right leg. Her symptoms are consistent with sciatica vs SI joint issue. She believes that she is at this time, did order prednisone, Zofran, and norco 5/325 for management. Will likely send patient home with the prednisone. Departure - Departure Time of Disposition: 11:53 Disposition: Home, Self-Care 01 Condition: Fair Clinical Impression: Low back pain Qualifiers: Chronicity: acute Back pain laterality: right Sciatica presence: with sciatica Sciatica laterality: sciatica of right side Qualified Code(s): M54.41 - Lumbago with sciatica, right side - Discharge Information *PRESCRIPTION DRUG MONITORING PROGRAM REVIEWED*: Yes *COPY OF PRESCRIPTION DRUG MONITORING REPORT IN PATIENT JANY: No Instructions: Sciatica, [id number], Pain Medicine Instructions, [id number] , Back Exercises, [id number] Referrals: Britt Cortes SHELTER SUPERVISOR [Primary Care Provider] - Forms: ED Department Discharge Additional Instructions: You have been evaluated in the ED for your lower back pain. Please use ice/heat as tolerated to the affected area. You may take Tylenol 500 mg q6 hrs for pain relief. Please do so until you have a tolerable level of pain with activity. Do not exceed 4000mg Tylenol in a 24 hour time period. You were given a prescription for hydrocodone/acetaminophen 5/325, please use 1- 2 tabs every 6 hours as needed for further pain relief, please note how much Tylenol your ingesting and do not take over the amount described above. You were given a course of steroids for your sciatica, please take as directed until gone. Aleve and ibuprofen use is not advised in . Please return to ED if your symptoms should change or worsen.
[2019-07-28] MEDS ORDERED: Morphine 10 MG/ML Syringe IM ONE (12:22)
== END 2019-07-28 12:45 | disposition home or self-care (01) ==
LOC: JD.ED 11:02
DX: M54.41 Lumbago with sciatica, right side (principal); F41.9 Anxiety disorder, unspecified; F32.9 Major depressive disorder, single episode, unspecified; E11.9 Type 2 diabetes mellitus without complications; Z88.1 Allergy status to other antibiotic agents; Z91.048 Other nonmedicinal substance allergy status; Z91.040 Latex allergy status; Z91.013 Allergy to seafood; Z91.018 Allergy to other foods; Z88.8 Allergy status to other drugs, medicaments and biological substances; Z79.82 Long term (current) use of aspirin; Z79.4 Long term (current) use of insulin; Z79.899 Other long term (current) drug therapy
CPT/HCPCS: 96372; 99283; A9270; J2270

== ENCOUNTER 2019-11-12 16:00 | Emergency (ER) | payer MEDICAID ==
--- NOTE | 2019-11-12 16:47 | EDM.PDOC ---
ED HPI GENERAL MEDICAL PROBLEM - General Chief Complaint: ENT Problem Stated Complaint: FLU SX AND SORE THROAT Time Seen by Provider: 11/12/19 16:42 - History of Present Illness INITIAL COMMENTS - FREE TEXT/NARRATIVE: 29-year-old female presents emergency room with severe sore throat generalized achiness and possible fevers. Patient is treated for lupus. She has a three-day history of worsening sore throat generally not feeling very well possible fevers she doesn't always have fevers when she should. She has minimal cough nonproductive. She has some abdominal discomfort in her right upper quadrant. No nausea vomiting or diarrhea. Treatments DRYWALL APPLICATION SUPERVISOR: Reports: Other (see below) Other Treatments DRYWALL APPLICATION SUPERVISOR: dayquil Throat Pain Score (Numeric/FACES): 8 - Related Data Allergies Allergy/AdvReac Type Severity Reaction Status Date / Time doxycycline Allergy Hives Verified 11/12/19 16:28 iodine Allergy Anaphylactic Verified 11/12/19 16:28 Shock latex Allergy Anaphylactic Verified 11/12/19 16:28 Shock shellfish derived Allergy Anaphylactic Verified 11/12/19 16:28 Shock strawberry Allergy Anaphylactic Verified 11/12/19 16:28 Shock Tricyclic Compounds Allergy Hives Verified 11/12/19 16:28 Home Meds: Home Meds Aspirin 81 mg PO DAILY 03/13/18 [History] Insulin Regular, Human [Humulin R] 300 unit IJ ASDIRECTED #5 pen 11/26/18 [Rx] Insulin Glarg,Human.Rec.Analog [Lantus] 16 units SUBCUT DAILY 12/25/18 [History] Sertraline [Zoloft] 100 mg PO DAILY 12/25/18 [History] Ondansetron [Zofran ODT] 1 tab PO Q8H PRN #10 tab.dis 02/19/19 [Rx] Acetaminophen/HYDROcodone [[place] 325-5 MG] 1 tab PO Q6H PRN #20 tablet 07/28/19 [Rx] Ondansetron [Zofran ODT] 4 mg PO Q8H PRN #28 tab.dis 07/28/19 [Rx] predniSONE [Deltasone] 20 mg PO ASDIRECTED #15 tablet 07/28/19 [Rx] Amoxicillin 500 mg PO TID #30 tab 11/12/19 [Rx] predniSONE [Prednisone] 10 mg PO ASDIRECTED #21 tablet 11/12/19 [Rx] Past Medical History Cardiovascular History: Reports: Angina, Other (See Below) Other Cardiovascular History: has frequent c/o chest pains. Respiratory History: Reports: Asthma Gastrointestinal History: Reports: Hiatal Hernia, Other (See Below) Other Gastrointestinal History: took Methotrexate for Lupus, took Chemotherapy for Lupus. Genitourinary History: Reports: Pyelonephritis, UTI, Recurrent Other Genitourinary History: states has pyelonephritis chronically. TRANSITION ASSISTANT History: Reports: Polycystic Ovaries, Other TRANSITION ASSISTANT History: "CUEVAS" disease--sticky blood disease. Musculoskeletal History: Reports: Back Pain, Chronic, Fracture, Other (See Below ) Other Musculoskeletal History: sciatica. States has musculoskeletal disorder. He believes that she has lupus erythematosus. She is scheduled to see rheumatology in 2 months time. She was on methotrexate for over a year and on high-dose steroids which did improve her CRP and sedimentation rate. Neurological History: Reports: Migraines, Seizure, Other (See Below) Other Neuro History: epilepsy. Psychiatric History: Reports: Anxiety, Depression Endocrine/Metabolic History: Reports: Diabetes, Type II, Obesity/BMI 30+, Other (See Below) Other Endocrine/Metabolic History: Insulin Resistance Hematologic History: Reports: Other (See Below) Other Hematologic History: Heavy blood loss due to CUEVAS and heavy periods, no blood transfusions. "CUEVAS" disease--sticky blood disease. Immunologic History: Reports: SLE Dermatologic History: Reports: Other (See Below) Other Dermatologic History: "Lupus lesions" - Infectious Disease History Infectious Disease History: Reports: Other (See Below) Other Infectious Disease History: scabies. - Past Surgical History HEENT Surgical History: Reports: Oral Surgery, Tonsillectomy GI Surgical History: Reports: Hernia Repair/Other Musculoskeletal Surgical History: Reports: Other (See Below) Social & Family History - Family History Family Medical History: Noncontributory - Caffeine Use Caffeine Use: Reports: None - Living Situation & Occupation Living situation: Reports: , with Spouse Occupation: Unemployed ED ROS ENT - Review of Systems Review Of Systems: See Below Constitutional: Reports: Fever (Low-grade), Chills HEENT: Reports: Throat Pain Respiratory: Reports: No Symptoms Cardiovascular: Reports: No Symptoms GI/Abdominal: Reports: Abdominal Pain. Denies: Constipation, Diarrhea, Nausea, Vomiting : Reports: No Symptoms Musculoskeletal: Reports: No Symptoms Skin: Reports: Other (Her fingers may be a little more swollen than normal which is probably due to her lupus) ED EXAM, ENT - Physical Exam Exam: See Below Exam Limited By: No Limitations General Appearance: Alert, No Apparent Distress Eye Exam: Bilateral Eye: Normal Inspection Ears: Normal External Exam, Normal Canal, Hearing Grossly Normal, Normal TMs Nose: Normal Inspection, Normal Mucousa, No Blood Mouth/Throat: Normal Inspection, Normal Gums, Normal Lips, Normal Teeth, Other ( Moderate redness in the posterior pharynx no significant exudate noted). No: Normal Oropharynx Head: Atraumatic, Normocephalic Neck: Normal Inspection, Supple, Full Range of Motion, Lymphadenopathy (L), Lymphadenopathy (R) Respiratory/Chest: No Respiratory Distress, Lungs Clear, Normal Breath Sounds Cardiovascular: Regular Rate, Rhythm, No Edema, No Murmur GI/Abdominal: Normal Bowel Sounds, Soft, Other (Mild right upper quadrant discomfort no other significant abnormalities found on exam. She has some significant obesity). No: Guarding, Rigid, Rebound (Female) Exam: Normal External Exam Course - Vital Signs Last Recorded V/S: Last Vital Signs Temp 37.1 C 11/12/19 16:22 Pulse 120 H 11/12/19 16:22 Resp 18 11/12/19 16:22 BP 136/87 11/12/19 16:22 Pulse Ox 95 11/12/19 16:22 - Orders/Labs/Meds Labs: Laboratory Tests 11/12/19 11/12/19 11/12/19 Range/Units 17:28 17:28 17:28 WBC 16.69 H (3.98-10.04) K/mm3 RBC 5.23 H (3.98-5.22) M/mm3 Hgb 13.6 (11.2-15.7) gm/dl Hct 42.6 (34.1-44.9) % MCV 81.5 (79.4-94.8) fl MCH 26.0 (25.6-32.2) pg MCHC 31.9 L (32.2-35.5) g/dl RDW Std Deviation 43.5 (36.4-46.3) fL Plt Count 286 (182-369) K/mm3 MPV 10.5 (9.4-12.3) fl Neutrophils % (Manual) 76 H (40-60) % Band Neutrophils % 2 (0-10) % Lymphocytes % (Manual) 13 L (20-40) % Atypical Lymphs % 0 % Monocytes % (Manual) 8 (2-10) % Eosinophils % (Manual) 0 L (0.7-5.8) % Basophils % (Manual) 1 (0.1-1.2) Nucleated RBCs 1.0 % Platelet Estimate Adequate RBC Morph Comment Normal Sodium 137 (136-145) mEq/L Potassium 3.4 L (3.5-5.1) mEq/L Chloride 101 (98-107) mEq/L Carbon Dioxide 25 (21-32) mEq/L Anion Gap 14.4 (5-15) BUN 7 (7-18) mg/dL Creatinine 0.8 (0.55-1.02) mg/dL Est Cr Clr Drug Dosing 106.56 mL/min Estimated GFR (MDRD) > 60 (>60) mL/min BUN/Creatinine Ratio 8.8 L (14-18) Glucose 136 H (74-106) mg/dL Calcium 9.1 (8.5-10.1) mg/dL Total Bilirubin 0.7 (0.2-1.0) mg/dL AST 17 (15-37) U/L ALT 23 (14-59) U/L Alkaline Phosphatase 100 (46-116) U/L Total Protein 8.6 H (6.4-8.2) g/dl Albumin 3.7 (3.4-5.0) g/dl Globulin 4.9 gm/dL Albumin/Globulin Ratio 0.8 L (1-2) Monoscreen Negative (NEGATIVE) Meds: Medications Discontinued Medications Generic Name Dose Route Start Last Admin Trade Name Freq PRN Reason Stop Dose Admin Lactated Ringer's 1,000 mls @ 999 mls/hr 11/12/19 17:03 11/12/19 17:27 Ringers, Lactated IV 11/12/19 18:03 999 mls/hr .BOLUS ONE Administration Potassium Chloride 40 meq 11/12/19 19:05 Klor-Con M20 PO 11/12/19 19:06 ONETIME ONE Prednisone 60 mg 11/12/19 19:05 Prednisone PO 11/12/19 19:06 ONETIME ONE - Re-Assessments/Exams Free Text/Narrative Re-Assessment/Exam: 11/12/19 19:17 History show that she is a little low on her potassium white count elevated but no bandemia. [place] was negative rapid strep is positive with her potassium being 3.4 she's given 40 mEq of oral potassium with a history of lupus she be started on prednisone 60 mg now than 40 mg every morning for 3 days 20 mg every morning for 3 days and 10 mg every morning for 3 days. She'll be started on amoxicillin. Departure - Departure Time of Disposition: 19:18 Disposition: Home, Self-Care 01 Clinical Impression: Strep pharyngitis - Discharge Information Prescriptions: Amoxicillin 500 mg PO TID #30 tab predniSONE [Prednisone] 10 mg PO ASDIRECTED #21 tablet Referrals: Britt Crotes NP [Primary Care Provider] - Forms: ED Department Discharge Additional Instructions: Return to the emergency room with any questions problems or worsening symptoms. Take the medications as directed. You will be contagious for 24 hours after starting the antibiotics this may take 4-5 days to improve Sepsis Event Note - Evaluation Sepsis Screening Result: Possible Sepsis Risk - Focused Exam Vital Signs: Vital Signs Temp Pulse Resp BP Pulse Ox 11/12/19 16:22 37.1 C 120 H 18 136/87 95 Date Exam was Performed: 11/12/19 Time Exam was Performed: 19:12
[2019-11-12] MEDS ORDERED: Lactated Ringers 1,000 ML IV ONE (17:03)
[2019-11-12] MEDS ORDERED: predniSONE 20 MG Tab PO ONE (19:05)
[2019-11-12] MEDS ORDERED: Potassium Chloride 20 MEQ Tab.ER PO ONE (19:05)
== END 2019-11-12 19:44 | disposition home or self-care (01) ==
LOC: JD.ED 16:00
DX: J02.0 Streptococcal pharyngitis (principal); J45.909 Unspecified asthma, uncomplicated; F41.9 Anxiety disorder, unspecified; F32.9 Major depressive disorder, single episode, unspecified; E11.9 Type 2 diabetes mellitus without complications; E66.9 Obesity, unspecified; Z68.41 Body mass index [BMI] 40.0-44.9, adult; Z88.8 Allergy status to other drugs, medicaments and biological substances; Z88.1 Allergy status to other antibiotic agents; Z91.040 Latex allergy status; Z91.013 Allergy to seafood; Z91.018 Allergy to other foods; Z79.82 Long term (current) use of aspirin; Z79.4 Long term (current) use of insulin; Z79.899 Other long term (current) drug therapy
CPT/HCPCS: 36415; 80053; 85007; 85027; 86308; 87430; 96360; 96361; 99284; A9270; J7120; 99283

== ENCOUNTER 2019-12-21 05:21 | Emergency (ER) | payer MEDICAID ==
--- NOTE | 2019-12-21 05:51 | EDM.PDOC ---
ED HPI GENERAL MEDICAL PROBLEM - General Chief Complaint: Lower Extremity Injury/Pain Stated Complaint: RT KNEE INJURY Time Seen by Provider: 12/21/19 05:39 Source of Information: Reports: Patient, Family () History Limitations: Reports: No Limitations - History of Present Illness INITIAL COMMENTS - FREE TEXT/NARRATIVE: Mrs. Rabago is a 29-year-old woman who states that she fell after colliding with her [place] around 03:00 to 03:30 this morning, causing her to fall with her left leg under her and her right leg extended out in front. She presents to the ED with right knee pain. She is otherwise uninjured. She reports prior right ACL injury and repair. She did not take any [id number] or home remedies prior to coming to the ED. The patient's PCP is Britt Cortes NP. Her Orthopedic Surgeon is Dr. Diogenes Meredith. Her Partition Assembly Machine Operator is Dr. Syed Lehman. Right Knee Pain Score (Numeric/FACES): 5 - Related Data Allergies Allergy/AdvReac Type Severity Reaction Status Date / Time doxycycline Allergy Hives Verified 12/21/19 05:40 iodine Allergy Anaphylactic Verified 12/21/19 05:40 Shock latex Allergy Anaphylactic Verified 12/21/19 05:40 Shock shellfish derived Allergy Anaphylactic Verified 12/21/19 05:40 Shock strawberry Allergy Anaphylactic Verified 12/21/19 05:40 Shock Tricyclic Compounds Allergy Hives Verified 12/21/19 05:40 Home Meds: Home Meds Aspirin 81 mg PO DAILY 03/13/18 [History] Insulin Regular, Human [Humulin R] 300 unit IJ ASDIRECTED #5 pen 11/26/18 [Rx] Insulin Glarg,Human.Rec.Analog [Lantus] 16 units SUBCUT DAILY 12/25/18 [History] Sertraline [Zoloft] 100 mg PO DAILY 12/25/18 [History] Past Medical History Respiratory History: Reports: Asthma (suspected, not tested) Gastrointestinal History: Reports: GERD Genitourinary History: Reports: Urinary Incontinence (stress incontinence) CRM SYSTEM ADMINISTRATOR History: Reports: Polycystic Ovaries, Neurological History: Reports: Seizure (possible, untreated) Psychiatric History: Reports: Anxiety, Depression, Other (See Below) ( Borderline personality disorder) Endocrine/Metabolic History: Reports: Diabetes, Type II, Obesity/BMI 30+ Immunologic History: Reports: SLE (possible) - Past Surgical History HEENT Surgical History: Reports: Oral Surgery (wisdom teeth extraction), Tonsillectomy GI Surgical History: Reports: Hernia, Abdominal ([place] umbilical) Musculoskeletal Surgical History: Reports: Arthroscopic Knee (right, ACL repair) Social & Family History - Family History Family Medical History: Noncontributory - Tobacco Use Smoking Status *Q: Never Smoker - Caffeine Use Caffeine Use: Reports: None - Recreational Drug Use Recreational Drug Use: No - Living Situation & Occupation Living situation: Reports: , with Spouse Occupation: Employed ([employer]) Review of Systems - Review of Systems Review Of Systems: Comprehensive ROS is negative, except as noted in HPI. ED EXAM, GENERAL - Physical Exam Exam: See Below Exam Limited By: No Limitations General Appearance: Alert, WD/WN, No Apparent Distress Extremities: Other (No visible abnormality to the right knee, when compared to the left, such as swelling, erythema, ecchymosis, or abrasion, however, there is a small ecchymosis inferomedially to the joint. No laxity to stressing of the medial and lateral collateral ligaments, and anterior and posterior drawer signs are absent. The patient reports tenderness, however, circumferentially around the joint, particularly posteriorly. Neurovascular status of the right lower extremity is intact.) Course - Vital Signs Last Recorded V/S: Last Vital Signs Temp 35.9 C 12/21/19 05:36 Pulse 97 12/21/19 05:36 Resp 16 12/21/19 05:36 BP 131/64 12/21/19 05:36 Pulse Ox 97 12/21/19 05:36 - Orders/Labs/Meds Orders: Active Orders 24 hr Category Date Time Status Knee 3V Rt [CR] Stat Exams 12/21/19 05:45 Taken - Re-Assessments/Exams Free Text/Narrative Re-Assessment/Exam: 12/21/19 05:47 On examination, there is no visible injury other than a small ecchymosis inferomedially to the joint, and I find no laxity to examination of the joint, however, the patient is reporting pain to palpation of the whole joint, articularly posterior, therefore I have ordered x-rays of the knee. 12/21/19 06:26 3-view radiographs of the right knee appear to be normal. No fracture or dislocation seen. Formal read per the Radiologist pending. 12/21/19 06:42 X-ray results discussed with the patient and her . The patient appears to have strained her right knee, although a bone contusion is always possible. I am recommending rest, ice, elevation, and Tylenol or ibuprofen. If her pain continues, I would like her to follow-up with Dr. Meredith, who is already her Orthopedic Surgeon. Departure - Departure Time of Disposition: 06:43 Disposition: Home, Self-Care 01 Condition: Good Clinical Impression: Strain of right knee - Discharge Information *PRESCRIPTION DRUG MONITORING PROGRAM REVIEWED*: Not Applicable *COPY OF PRESCRIPTION DRUG MONITORING REPORT IN PATIENT JANY: Not Applicable Instructions: RICE Therapy for Routine Care of Injuries, [id number] Referrals: Britt Cortes NP [Primary Care Provider] - Diogenes Meredith MD [Physician] - Syed Lehman MD [Ordering Only Provider] - Forms: ED Department Discharge Additional Instructions: You were seen in the emergency room after falling and injuring your right knee this morning. Workup in the ER included x-rays of your right knee, which returned normal. No broken bones or dislocations. Based on your history, physical exam, and ER x-rays, you have most likely strained your right knee. We recommend that you ice, elevate, and rest your right knee. You may take over- the-counter Tylenol or ibuprofen as needed for discomfort; ibuprofen will likely work better and last longer than Tylenol. If your right knee fails to get better within the next several days, please follow-up with your Orthopedic Surgeon, Dr. Diogenes Meredith for further evaluation. If any other problems, please do not hesitate to return to the ER. Sepsis Event Note - Evaluation Sepsis Screening Result: No Definite Risk - Focused Exam Vital Signs: Vital Signs Temp Pulse Resp BP Pulse Ox 12/21/19 05:36 35.9 C 97 16 131/64 97 Date Exam was Performed: 12/21/19 Time Exam was Performed: 07:05 - My Orders Last 24 Hours: My Active Orders 12/21/19 05:45 Knee 3V Rt [CR] Stat - Assessment/Plan Last 24 Hours: My Active Orders 12/21/19 05:45 Knee 3V Rt [CR] Stat
--- NOTE | 2019-12-21 07:25 | CR ---
Right knee: AP, lateral and sunrise patellar views of the right knee were obtained. Comparison: No previous knee exam. Medial and lateral joint spaces are maintained in height. No joint effusion is seen. Right patellofemoral joint appears normal. No fracture or other bony abnormality is appreciated. Impression: 1. No abnormality is identified on right knee exam. Diagnostic code #1 This report was dictated in [place] [employer] Time
== END 2019-12-21 07:00 | disposition home or self-care (01) ==
LOC: JD.ED 05:21
DX: S86.911A Strain of unspecified muscle(s) and tendon(s) at lower leg level, right leg, initial encounter (principal); E11.9 Type 2 diabetes mellitus without complications; E66.9 Obesity, unspecified; J45.909 Unspecified asthma, uncomplicated; K21.9 Gastro-esophageal reflux disease without esophagitis; Z79.899 Other long term (current) drug therapy; Z88.1 Allergy status to other antibiotic agents; Z91.09 Other allergy status, other than to drugs and biological substances; Z91.040 Latex allergy status; Z91.013 Allergy to seafood; Z88.8 Allergy status to other drugs, medicaments and biological substances; Z79.82 Long term (current) use of aspirin; Z79.4 Long term (current) use of insulin; W19.XXXA Unspecified fall, initial encounter
CPT/HCPCS: 73562-26-RT; 73562-RT; 99282; 99283-25